=== PATIENT | female | born 1990 | race Hispanic/Latino ===

== ENCOUNTER 2016-09-10 20:23 | Emergency (ER) | payer OTHER ==
[~2016-09-10] VITALS: Ht 154.9 cm; Wt 57.2 kg
[~2016-09-10 20:23] MED LIST: DIFLUCAN150 M1 PO; FLAGYL500 MG PO; MACRODANTIN100 M1 PO; PREDNISOLO15 MG/5 M4 PO; QVAR8.7 G1 INH; VENTOLIN HFA18 GM INH; VITAFOL-ONE CA1 EACH PO; XANAX0.5 M1 PO
--- NOTE | 2016-09-10 22:12 | ED GI/GU/ABDOMINAL COMPLAINT ---
History of Present Illness General Chief Complaint: Dizziness Stated Complaint: DIZZY, +PREG Source: patient, old records Exam Limitations: no limitations Vital Signs & Intake/Output Vital Signs & Intake/Output Vital Signs Date Time Temp Pulse Resp B/P Pulse O2 O2 Flow FiO2 Ox Delivery Rate 09/10 2315 97.8 82 18 120/84 98 Room Air Room Air 09/10 2057 97.9 85 20 118/88 99 Room Air ED Intake and Output 09/11 0000 09/10 1200 Intake Total Output Total Balance Patient 126 lb Weight Allergies Coded Allergies: animal dander (SNEEZING, COUGHING, MAY TRIGGER ASTHMA 09/10/16) Uncoded Allergies: ENVIRONMENTAL (SNEZZING, COUGHING, MAY TRIGGER ASTHMA 02/22/16) Reconcile Medications Acetaminophen (Children's Tylenol) 160 MG/5 ML ORAL.SUSP 30 ML PO PRN PAIN ( Reported) Albuterol Sulfate (Ventolin Hfa) 18 GM HFA.AER.AD 2 PUF INH Q4-6 PRN PRN sob Beclomethasone Dipropionate (QVAR) 8.7 GM AER.W.ADAP 2 PUF INH BID ASTHMA ( Reported) Meclizine HCl 25 MG TABLET 1 TAB PO TIDPRN PRN dizziness Ondansetron (Zofran Odt) 4 MG TAB.RAPDIS 1 TAB SL TID PRN nausea Pnv#26/Iron Poly/FA/Dha (Vitafol-One Capsule) 1 EACH CAPSULE 1 CAP PO DAILY SUPPLEMENT (Reported) Triage Note: TRIAGE: PT TO ER C/C DIZZY SPELLS X 2 DAYS. HAD POSITIVE HOME TEST DONE 2 DAYS AGO. "IT WAS VERY FAINT THOUGH". ALSO COMPLAINS OF NAUSEA AND STATES SHE HIT HER HEAD LAST SATURDAY ON CAR WHEN SHE WAS GETTING OUT OF THE CAR. DENIES LOC. WAS SENT TO OUTPATIENT LAB FOR HCG BLOOD TEST BUT DECIDED TO CHECK INTO ER FOR EVAL OF S/S. Triage Nurses Notes Reviewed? yes LMP (ages 10-50): now (08/16/16) ? n Is pt currently ? No Onset: Abrupt Duration: day(s): (2), better, intermittent, waxing and waning Timing: recent history Quality/Severity: aching Severity Numbers: 4 Location: suprapubic Radiation: no radiation Activities at Onset: none Sexually Active: Yes No Modifying Factors: none Associated Symptoms: dizziness HPI: This is a 26-year-old female who presents to the emergency room for evaluation stating that she has felt dizzy lightheaded and nauseous for the past 2 days. The patient attributes her symptoms to not drinking enough fluids however took a home test which was +2 days ago. She states at that time she had suprapubic abdominal cramping that resolved after a few minutes. Patient's history is significant for a miscarriage last year at 5 weeks gestation. She denies any urinary symptoms vaginal bleeding or discharge. She currently denies any abdominal pain no fever no chills. She does state that 5 days ago she hit her head while getting out of a car there was no loss of consciousness and denied headache dizziness nausea at that time. She states after taking a home test she was referred to the [place] [facility] for outpatient serum testing however came to the ER instead. There are no modifying factors or symptoms are not worse with head movement (EMIGDIO MAIN) Past History Travel History Traveled to [place] past 21 day No Medical History Any Pertinent Medical History? 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 No (EMIGDIO MAIN) Review of Systems Review of Systems Constitutional: Reports: see HPI. All Other Systems: Reviewed and Negative Comments Review of systems: See HPI, All other systems negative. Constitutional, no chills no fever, no malaise HEENT: No visual changes no sore throat no congestion Cardiovascular: No chest pain , no palpitation , Skin, no jaundice no rashes, no change in skin Respiratory: No dyspnea no cough no sputum GI: No nausea no vomiting, no diarrhea : No dysuria No hematuria, no frequency, no discharge Muscle skeletal: No joint pain, no joint swelling, no back pain, no neck pain, Neurologic: No numbnessno headache Psych: No stress Heme/endocrine: No bruising no bleeding Immunology: No lymphadenopathy (EMIGDIO MAIN) Physical Exam Physical Exam General Appearance: well developed/nourished, no apparent distress, alert, awake Gastrointestinal: normal bowel sounds, soft Comments: Well-developed well-nourished person in no acute distress HEENT: Normal EENT exam; PERRL, EOMI. HEAD is atraumatic. moist mucous membranes. Neck: Supple, normal range of motion Back: Nontender, no CVA tenderness. Full range of motion Cardiovascular: Regular rate and rhythms no murmurs rubs Respiratory: No respiratory distress. Patient speaking in full complete sentences. Breath sounds clear to auscultation bilaterally: NO W/R/R Abdomen: Soft, nontender nondistended no rebound no guarding nor bowel sounds Extremity: No edema, full range of motion of extremities Neuro: Alert oriented x3, motor sensory normal, There were no obvious focal neurologic abnormalities. Skin: No appreciable rash on exposed skin, skin is warm and dry. Psych: Mood and affect is normal, memory and judgment is normal. Core Measures ACS in differential dx? No Severe Sepsis Present: No Septic Shock Present: No (EMIGDIO MAIN) Progress Differential Diagnosis: ectopic , inflamm bowel dis, intrauterine , UTI/pyelo, VERTIGO, CONCUSSION, ICH, LABYRINTHITIS Plan of Care: Orders Procedure Date/time Status HUMAN BETA HCG SCREEN 09/10 2218 Complete CBC WITHOUT DIFFERENTIAL 09/10 2218 Complete BASIC METABOLIC PANEL 09/10 2218 Complete URINE 09/10 2124 Complete URINALYSIS 09/10 2124 Complete Laboratory Tests 09/10/162226: Anion Gap 12, Estimated GFR > 60, BUN/Creatinine Ratio 18.3, Glucose 80, Calcium 9.5, Total Beta HCG NEGATIVE, CBC w Diff NO MAN DIFF REQ, RBC 4.15 L, MCV 94.4, MCH 31.6 H, RDW 12.8, MPV 7.4, Gran % 42.3, Lymphocytes % 47.7, Monocytes % 6.3 , Eosinophils % 3.2, Basophils % 0.5, Absolute Granulocytes 4.4, Absolute Lymphocytes 5.0 H, Absolute Monocytes 0.7 H, Absolute Eosinophils 0.3, Absolute Basophils 0.1, PUBS MCHC 33.5 09/10/162119: Urinalysis MOD H, Urine Color YEL, Urine Clarity HAZY H, Urine pH 7.5, Ur Specific [place] 1.015, Urine Protein NEG, Urine Ketones NEG, Urine Nitrite NEG, Urine Bilirubin NEG, Urine Urobilinogen 2.0 H, Ur Leukocyte Esterase SMALL H, Ur Microscopic SEDIMENT EXAMINED, Urine RBC RARE, Urine WBC 1-3 H, Ur Epithelial Cells MANY H, Urine Hemoglobin NEG, Urine Glucose NEG, Urine Test NEGATIVE Labs ordered old records reviewed patient denies any symptoms at this time Case discussed with Dr. French I discussed the patient the follow for lab results E for close follow-up with her primary care physician (EMIGDIO MAIN) Initial ED EKG: none (EMIGDIO MAIN) Departure Departure Time of Disposition: 2255 Disposition: HOME OR SELF CARE Condition: Stable Clinical Impression Primary Impression: Dizziness Referrals: JUAN FRANCISCO TRENT DO (PCP/Family) ABEL LEE,TOBY Bowles Additional Instructions: meclizine for dizziness, zofran if needed for nausea. drink plenty of fluids. return with any concerns Departure Forms: Customer Survey General Discharge Information Prescriptions: Current Visit Scripts Meclizine HCl 1 TAB PO TIDPRN PRN dizziness #15 TAB Ondansetron (Zofran Odt) 1 TAB SL TID PRN nausea #10 TAB (EMIGDIO MAIN) PA/CHIEF OPERATING ENGINEER Co-Sign Statement Statement: ED Attending supervision documentation- [] I saw and evaluated the patient. I have also reviewed all the pertinent lab results and diagnostic results. I agree with the findings and the plan of care as documented in the PA's/CHIEF OPERATING ENGINEER's documentation. [X] I have reviewed the ED Record and agree with the PA's/CHIEF OPERATING ENGINEER's documentation. [] Additions or exceptions (if any) to the PAs/CHIEF OPERATING ENGINEER's note and plan are summarized below: [] (SHERI LEE,LITTLE Patterson)
[2016-09-10] MEDS ORDERED: CHILDREN'S160 MG/13 PO (22:21)
[2016-09-10] MEDS ORDERED: ZOFRAN ODT4 M1 SL (22:25)
[2016-09-10] MEDS ORDERED: MECLIZINE HCL25 MG PO (22:25)
[2016-09-10 22:36] LABS: ABSOLUTE BASOPHIL COUNT 0.1 /CUMM (0.0-0.2); ABSOLUTE EOSINOPHIL COUNT 0.3 /CUMM (0.0-0.7); ABSOLUTE GRANULOCYTE CT 4.4 /CUMM (1.4-6.5); ABSOLUTE MONOCYTE COUNT 0.7 /CUMM (0.10-0.60); BASOPHIL % 0.5 % (0.0-2.0); EOSINOPHIL % 3.2 % (0-5); GRANULOCYTE % 42.3 % (42.2-75.2); HEMATOCRIT 39.2 % (37-47); MEAN CORPUSCULAR HGB 31.6 PG (27.0-31.0); MEAN CORPUSCULAR HGB CONC 33.5 G/DL (33.0-37.0); MEAN CORPUSCULAR VOLUME 94.4 FL (81.0-99.0); MEAN PLATELET VOLUME 7.4 FL (7.4-10.4); PLATELET COUNT 317 /CUMM (130-400); RBC DISTRIBUTION WIDTH 12.8 % (11.5-14.5); RED BLOOD CELL CT 4.15 /CUMM (4.20-5.40); WHITE BLOOD CELL COUNT 10.5 /CUMM (4.8-10.8)
[2016-09-10 23:15] VITALS: BP 120/84
== END 2016-09-10 23:16 ==
LOC: ERH 20:23
PROVIDERS: Physician Assistant Medical
DX: R42 Dizziness and giddiness (principal)
CPT/HCPCS: 81001; 81025

== ENCOUNTER 2016-09-23 10:33 | Emergency (ER) | payer OTHER ==
[~2016-09-23] VITALS: Ht 154.9 cm; Wt 55.8 kg
[~2016-09-23 10:33] MED LIST changes: +CHILDREN'S160 MG/13 PO; +MECLIZINE HCL25 MG PO; +ZOFRAN ODT4 M1 SL
[2016-09-23 10:56] VITALS: BP 113/81
--- NOTE | 2016-09-23 11:26 | ED THROAT/DENTAL COMPLAINT ---
History of Present Illness General Chief Complaint: General Adult Stated Complaint: "I HAVE STREP THROAT" Source: patient, old records Exam Limitations: no limitations Vital Signs & Intake/Output Vital Signs & Intake/Output Vital Signs Date Time Temp Pulse Resp B/P Pulse O2 O2 Flow FiO2 Ox Delivery Rate 09/23 1117 Room Air 09/23 1056 99.5 114 20 113/81 98 Room Air Room Air Allergies Coded Allergies: animal dander (SNEEZING, COUGHING, MAY TRIGGER ASTHMA 09/10/16) Uncoded Allergies: ENVIRONMENTAL (SNEZZING, COUGHING, MAY TRIGGER ASTHMA 02/22/16) Reconcile Medications Acetaminophen (Children's Tylenol) 160 MG/5 ML ORAL.SUSP 30 ML PO PRN PAIN ( Reported) Acetaminophen (Tylenol Sore Throat) 500 MG/15 ML LIQUID 15 ML PO TID PRN PAIN Albuterol Sulfate (Ventolin Hfa) 18 GM HFA.AER.AD 2 PUF INH Q4-6 PRN PRN sob Beclomethasone Dipropionate (QVAR) 8.7 GM AER.W.ADAP 2 PUF INH BID ASTHMA ( Reported) Meclizine HCl 25 MG TABLET 1 TAB PO TIDPRN PRN dizziness Ondansetron (Zofran Odt) 4 MG TAB.RAPDIS 1 TAB SL TID PRN nausea Pnv#26/Iron Poly/FA/Dha (Vitafol-One Capsule) 1 EACH CAPSULE 1 CAP PO DAILY SUPPLEMENT (Reported) Prednisolone 15 MG/5 ML SOLUTION 15 ML PO DAILY PHARYNGITIS Triage Note: PT TO ED WITH C/O STREP THROAT SINCE SATURDAY WENT TO WALK IN AND NOT ANY BETTER. MISSED WORKED X 3 DAYS. Triage Nurses Notes Reviewed? yes Onset: Abrupt Duration: day(s): (3), constant Timing: recent history Injury Environment: home Severity: moderate Severity Numbers: 6 No Modifying Factors: none Associated Symptoms: DENIES : No Patient currently breastfeeds: No HPI: 26-year-old female presents to emergency room complaining of progressively worsening sore throat over the past 3 days. No fever no chills no congestion cough. She denies any sick contacts.. The patient states that she was seen at another hospital 2 days ago at which time she had a negative strep swab. She was placed on amoxicillin and was given lidocaine. She's been using these above without improvement. Her symptoms have persisted. This helped all pain nausea vomiting. Symptoms are worse with swallowing. No drooling or facial swelling no recent dental work pain is aching nonradiating modifying factors otherwise. Past History Travel History Traveled to [place] past 21 day No Medical History Any Pertinent Medical History? 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 No Review of Systems Review of Systems Constitutional: Reports: see HPI. All Other Systems: Reviewed and Negative Comments Review of systems: See HPI, All other systems negative. Constitutional, no chills no fever, no malaise HEENT: No visual changes sore throat no congestion, no ear pain Cardiovascular: No chest pain , no palpitation Skin, no rashes, no change in skin Respiratory: No dyspnea no cough no sputum GI: No nausea no vomiting, no diarrhea, : No dysuria Muscle skeletal: No joint pain, no back pain, no neck pain, Neurologic: No numbness no headache Psych: No stress Heme/endocrine: No bruising no bleeding Immunology: No lymphadenopathy Physical Exam Physical Exam General Appearance: well developed/nourished, alert Mouth/Throat: EXUDATE Comments: Well-developed well-nourished patient in no apparent distress. Head/Face: Atraumatic, no maxillary/frontal sinus tenderness, no facial swelling Eyes: PERRL, EOMI, no conjunctival injection. No nystagmus Ear:External auditory canal and Tympanic membranes clear, no erythema, no FB. Nose: atraumatic.Normal inspection Throat: Moist mucous membranes.pharynx is erythematous, exudate or tonsillar, there is no trismus no drooling NO stridor, NO UVULA DISPLACEMENT or assymetry. No swelling or edema. Neck: Supple, no lymphadenopathy, FROM Back: FROM, Nontender Cardiovascular: Regular rate and rhythms no murmurs rubs or gallops, Respiratory: Chest nontender.There were no bony deformities, no asymmetry. No respiratory distress. Patient speaking in full complete sentences. Breath sounds clear to auscultation bilaterally: NO W/R/R Extremities: full range of motion Neuro: Alert and oriented x3 Skin: Warm & dry;No appreciable rash on exposed skin Psych: Mood affect normal, normal memory normal judgment. Core Measures ACS in differential dx? No Severe Sepsis Present: No Septic Shock Present: No Progress Differential Diagnosis: epiglottitis, Ludwigs angina, odontogenic abscess, promise- tonsillar abscess, strep pharyngitis Plan of Care: Orders Procedure Date/time Status THROAT CULTURE W/QUICK STREP 09/23 1050 Active The patient is speaking in full complete sentences there is no drooling, she is afebrile nontoxic appearing advised to continue antibiotic prescription for prednisone Tylenol provided (TIFFANIE ANDERS,EMIGDIO) Departure Departure Time of Disposition: 1132 Disposition: HOME OR SELF CARE Condition: Stable Clinical Impression Primary Impression: Pharyngitis Referrals: JUAN FRANCISCO TRENT DO (PCP/Family) Additional Instructions: Continue taking the antibiotics as prescribed. Prednisone as directed Tylenol for pain saltwater gargles. Departure Forms: Customer Survey General Discharge Information Prescriptions: Current Visit Scripts Prednisolone 15 ML PO DAILY #75 ML Acetaminophen (Tylenol Sore Throat) 15 ML PO TID PRN PAIN #75 ML
[2016-09-23] MEDS ORDERED: PREDNISOLO15 MG/5 M4 PO (11:35)
[2016-09-23] MEDS ORDERED: TYLENOL SO500 MG/15 PO (11:35)
== END 2016-09-23 11:43 ==
LOC: ERH 10:33
DX: J02.9 Acute pharyngitis, unspecified (principal)

== ENCOUNTER 2016-10-03 07:55 | Emergency (ER) | payer OTHER ==
[~2016-10-03] VITALS: Ht 154.9 cm; Wt 54.4 kg
[~2016-10-03 07:55] MED LIST changes: +TYLENOL SO500 MG/15 PO
--- NOTE | 2016-10-03 08:42 | ED PSYCHIATRIC COMPLAINT ---
History of Present Illness General Chief Complaint: Psychiatric Related Complaint Stated Complaint: ANXIETY ATTACK Source: patient, old records Exam Limitations: no limitations Vital Signs & Intake/Output Vital Signs & Intake/Output ED Intake and Output 10/04 0000 10/03 1200 Intake Total Output Total Balance Patient 120 lb Weight Allergies Coded Allergies: animal dander (SNEEZING, COUGHING, MAY TRIGGER ASTHMA 09/10/16) Uncoded Allergies: ENVIRONMENTAL (SNEZZING, COUGHING, MAY TRIGGER ASTHMA 02/22/16) Reconcile Medications Tinidazole 500 MG TABLET 1 TAB PO DAILY UNKNOWN (Reported) Valacyclovir HCl (Valacyclovir) 1,000 MG TABLET 1 TAB PO BID ANTIBIOTIC, INFECTION (Reported) Triage Note: PT STATES THAT SHE HAS A HISTORY OF ANXIETY AND THAT SHE IS FREAKING OUT, WHEN ASKED WHY , PT NOTED TO BE RAMBLING THAT SHE CAN'T BE ALONE, STATES THAT SHE WAS STARTED ON ABT FOR SORE THROAT AND THAT SHE HAD A VAGINAL SWAB AND THAT SHE HAS HERPES AND A YEAST INFECTION. PT KEEPS STATING THAT I THINK I MIGHT HAVE HIV, " STATES THAT THE HERPES GAVE ME HIV". WANTS TO SPEAK WITH A COUNSLER , AN OB- STRAIGHTENER AND ALIGNER, AND THAT SHE NEEDS THE RESULTS OF HER BLOOD WORK. DENIES SI/HI BUT KEEPS STATING OVER AND OVER I CAN'T BE ALONE. Triage Nurses Notes Reviewed? yes Onset: Gradual Duration: day(s): (1) Timing: recent history Severity: moderate Severity Numbers: 8 : No Patient currently breastfeeds: No HPI: Patient is a 26-year-old female presenting to the emergency department with chief complaint of panic attack. Patient reports that she is very anxious since finding out the news that she has genital herpes. She is currently sexually active. She is trying to get . She is very anxious that this will affect her . Denies any vaginal bleeding. No abdominal pain. Denies any nausea or vomiting fevers or chills chest pain or shortness of breath. Positive history of anxiety for which she takes Xanax when necessary. She did not take anything this morning. She is currently being treated for bacterial vaginosis and herpes. She wanted evaluation for her anxiety. (HERBERT TONEY) Past History Travel History Traveled to [place] past 21 day No Medical History Any Pertinent Medical History? 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 No (HERBERT TONEY) Review of Systems Review of Systems Constitutional: Reports: no symptoms. Comments Review of systems: See HPI, All other systems negative. Constitutional, no chills fever or weight loss HEENT: No visual changes no sore throat no congestion Cardiovascular: No chest pain ,palpitation , orthopnea or ankle swelling Skin, no jaundice no rashes Respiratory: No dyspnea cough sputum or hemoptysis GI: No nausea no vomiting : No dysuria No hematuria Muscle skeletal: no back pain, no neck pain, Neurologic: No numbness no confusion Psych: positive stress, anxiety Heme/endocrine: No bruising no bleeding no polyuria or polydipsia Immunology: No splenectomy or history of AIDS (HERBERT TONEY) Physical Exam Physical Exam General Appearance: well developed/nourished, alert, anxious, tearful Neurological/Psychiatric: oriented x 3, tearful Comments: Well-developed well-nourished person in no acute distress HEENT: . Pupils equally round and reactive to light and accommodation. Nose is atraumatic. Neck: Normal inspection Back: Nontender Cardiovascular: Regular rate and rhythms no murmurs rubs or gallops, normal JVP Respiratory: Chest nontender. No respiratory distress.breath sounds clear to auscultation bilaterally Abdomen: Soft, nontender nondistended, no appreciable organomegaly. Normal bowel sounds. No ascites Extremity: No edema Neuro: Alert oriented x3 Skin: No appreciable rash on exposed skin, skin is warm and dry. Psych: Very tearful, anxious SAD PERSONS Done? patient not suicidal (HERBERT TONEY) Progress Differential Diagnosis: panic attack, , UTI, STD Plan of Care: Orders Procedure Date/time Status Regular Diet 10/03 L Active Add-on Test (ER Only) 10/03 0947 Active Add-on Test (ER Only) 10/03 0944 Active URINALYSIS 10/03 09 Complete HUMAN BETA HCG TITRE 03/01 0915 Complete URINE 10/03 841 Complete URINE DRUG SCREEN FOR ER ONLY 10/03 841 Complete ETHANOL 10/03 841 Complete COMPREHENSIVE METABOLIC PANEL 10/03 841 Complete CBC WITHOUT DIFFERENTIAL 10/03 841 Complete ED CRISIS PSYCH CONSULT 10/03 841 Active Laboratory Tests 10/03/16914: Serum Alcohol < 10.0 10/03/16914: Anion Gap 13, Estimated GFR > 60, BUN/Creatinine Ratio 13.3, Glucose 97, Calcium 9.7, Total Bilirubin 1.3, AST 14, ALT 23, Alkaline Phosphatase 55, Total Protein 7.9, Albumin 4.3, Globulin 3.6, Albumin/Globulin Ratio 1.2, Beta HCG, Quant 604.7, CBC w Diff NO MAN DIFF REQ, RBC 4.44, MCV 91.0, MCH 31.1 H, RDW 12.2, MPV 6.8 L, Gran % 62.4, Lymphocytes % 28.6, Monocytes % 7.8, Eosinophils % 0.3, Basophils % 0.9, Absolute Granulocytes 7.0 H, Absolute Lymphocytes 3.2, Absolute Monocytes 0.9 H, Absolute Eosinophils 0, Absolute Basophils 0.1, PUBS MCHC 34.2, Urine Opiates Screen < 100.00, Methadone Screen < 40, Barbiturate Screen < 60, Ur Phencyclidine Scrn < 6.00, Amphetamines Screen < 100, U Benzodiazepines Scrn < 85, Urine Cocaine Screen < 50, Urine Cannabis Screen < 5.00, Urinalysis LIGHT H, Urine Color YEL, Urine Clarity HAZY H, Urine pH 6.5, Ur Specific [place] 1.020, Urine Protein TRACE H, Urine Ketones 15 H, Urine Nitrite NEG, Urine Bilirubin NEG@ICTO, Urine Urobilinogen 1.0, Ur Leukocyte Esterase LARGE H, Ur Microscopic SEDIMENT EXAMINED, Urine RBC RARE, Urine WBC > 75 H, Ur Epithelial Cells MANY H, Urine Bacteria MANY H, Urine Mucus MANY H, Urine Hemoglobin NEG, Urine Glucose NEG, Urine Test POSITIVE Comments: Patient informed that she is . She'll follow-up with Dr. Evans essentially she leaves the emergency department. She will also follow-up with recommendations made by crisis. She has an outpatient appointment set up. Patient is not suicidal or homicidal. Deemed not a harm to self or others by crisis. (HERBERT TONEY) Departure Departure Time of Disposition: 1335 Disposition: HOME OR SELF CARE Condition: Stable Clinical Impression Primary Impression: Anxiety Secondary Impressions: Qualifiers: Weeks of gestation: unspecified Qualified Code: Z33.1 - state, incidental Referrals: JUAN FRANCISCO TRENT DO (PCP/Family) Additional Instructions: Follow-up with Dr. Evans, go right to her office after discharge. Return for worsening symptoms or concerns. Follow-up with recommendations made by crisis. Departure Forms: Customer Survey General Discharge Information (HERBERT TONEY) PA/TAKE OFF MAN Co-Sign Statement Statement: ED Attending supervision documentation- [] I saw and evaluated the patient. I have also reviewed all the pertinent lab results and diagnostic results. I agree with the findings and the plan of care as documented in the PA's/TAKE OFF MAN's documentation. x I have reviewed the ED Record and agree with the PA's/TAKE OFF MAN's documentation. [] Additions or exceptions (if any) to the PAs/TAKE OFF MAN's note and plan are summarized below: [] (FRANCISCO LEE,SHEILA)
[2016-10-03 09:33] LABS: ABSOLUTE BASOPHIL COUNT 0.1 /CUMM (0.0-0.2); ABSOLUTE EOSINOPHIL COUNT 0 /CUMM (0.0-0.7); ABSOLUTE LYMPH COUNT 3.2 /CUMM (1.2-3.4); ABSOLUTE MONOCYTE COUNT 0.9 /CUMM (0.10-0.60); BASOPHIL % 0.9 % (0.0-2.0); EOSINOPHIL % 0.3 % (0-5); GRANULOCYTE % 62.4 % (42.2-75.2); HEMATOCRIT 40.4 % (37-47); MEAN CORPUSCULAR HGB 31.1 PG (27.0-31.0); MEAN CORPUSCULAR HGB CONC 34.2 G/DL (33.0-37.0); MEAN PLATELET VOLUME 6.8 FL (7.4-10.4); PLATELET COUNT 466 /CUMM (130-400); RBC DISTRIBUTION WIDTH 12.2 % (11.5-14.5); RED BLOOD CELL CT 4.44 /CUMM (4.20-5.40); WHITE BLOOD CELL COUNT 11.2 /CUMM (4.8-10.8)
[2016-10-03] MEDS ORDERED: VALACYCLOVIR1000 MG PO (10:59)
[2016-10-03] MEDS ORDERED: TINIDAZOLE500 MG PO (11:00)
[2016-10-03 13:10] VITALS: BP 120/67
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
== END 2016-10-03 13:56 ==
LOC: ERH 07:55
PROVIDERS: Physician Assistant
DX: F41.9 Anxiety disorder, unspecified (principal); Z33.1 Pregnant state, incidental
CPT/HCPCS: 80307; 81001; 81025; G0463; G0480